=== PATIENT | male | born 1980 | race Caucasian/White ===

== ENCOUNTER 2018-10-18 09:50 | Emergency (ER) | payer OTHER ==
[2018-10-18 09:56] VITALS: BP 122/55; PULSE 99; TEMP 98.4; BMI 31.8
[2018-10-18] MEDS ORDERED: FLUORESCEIN NA 1 EA STRIP OD ONE (10:15)
[2018-10-18] MEDS ORDERED: FLUORESCEIN NA 1 EA STRIP ONE (10:18)
--- NOTE | 2018-10-18 10:34 | PDOC ---
History of Present Illness - General Chief Complaint: Eye Problem Stated Complaint: EYE PAIN/REDNESS Time Seen by Provider: 10/18/18 09:57 History Source: Patient Exam Limitations: No Limitations - History of Present Illness Initial Comments: 10/18/18 10:44 37 year old male with no medical or surgical history presents with pain and irritation to right eye. Patient states while working 2 days ago a piece of metal fell into his right eye. Now with blurred vision, pain and redness. Timing/Duration: other (2 days ago) Severity: moderate Modifying Factors: improves with: immobilization Associated Symptoms: reports: other (blurred vision) Aspirin Received prior to arrival: Yes: no aspirin today Asa Contraindications(Core Measure): No: Allergy Beta Neil Contraindications(Core Measure): No: Not Prescribed Past History - Travel Traveled outside of the country in the last 30 days: No - Past Medical History Allergies/Adverse Reactions: Allergies Allergy/AdvReac Type Severity Reaction Status Date / Time No Known Allergies Allergy Unverified 10/18/18 09:56 Home Medications: Ambulatory Orders Polymyxin B Sulfate/Tmp [Polytrim Opthalmic Solution -] 1 drop OP Q3H #30 drops 10/18/18 COPD: No Other medical history: denies - Suicide/Smoking/Psychosocial Hx Smoking History: Never smoked Information on smoking cessation initiated: No Hx Alcohol Use: No Drug/Substance Use Hx: No Substance Use Type: None Review of Systems - Review of Systems Able to Perform ROS?: Yes Is the patient limited Polish proficient: Yes Constitutional: No: Chills, Fever, Weakness HEENTM: Yes: Eye Pain, Tearing, Recent change in vision. No: Ear Discharge, Nose Pain, Nose Congestion, Throat Swelling, Mouth Pain, Mouth Swelling Respiratory: No: Cough, Orthopnea, Wheezing ABD/GI: No: Abdominal Distended, Nausea, Vomiting, Indigestion Integumentary: No: Bruising, Erythema, Flushing *Physical Exam - Vital Signs Last Vital Signs Temp Pulse Resp BP Pulse Ox 98.4 F 99 H 17 122/55 L 99 10/18/18 09:53 10/18/18 09:53 10/18/18 09:53 10/18/18 09:53 10/18/18 09:53 - Physical Exam General Appearance: Yes: Nourished, Appropriately Dressed. 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 Martino who suggested Rx: polytrim and follow up in the office Patient prescribed polytrim and given office number to call office for appointment to remove foreign body from eye. ( information given to patient in Uzbek) Rx; polytrim q6h and d/c home telephone # of patient is [phone] *DC/Admit/Observation/Transfer Diagnosis at time of Disposition: FB entering eye Corneal abrasion, right Qualifiers: Encounter type: initial encounter Qualified Code(s): S05.01XA - Injury of conjunctiva and corneal abrasion without foreign body, right eye, initial encounter - Discharge Dispostion Disposition: HOME Condition at time of disposition: Good Decision to Admit order: No - Prescriptions Prescriptions: Polymyxin B Sulfate/Tmp [Polytrim Opthalmic Solution -] 1 drop OP Q3H #30 drops - Referrals - Patient Instructions Printed Discharge Instructions: DI for Corneal Abrasion, DI for Foreign Body in the Eye Additional Instructions: Es mas importante to ramy un doctor de julia pronto llama [phone] para beatriz miguel pronto en 3 fields Si tu tienes un doctor de julia [place]. Se llueve aqui si tu sientes mas dolor Print Language: ICELANDIC - Post Discharge Activity Forms/Work/School Notes: Back to Work
== END 2018-10-18 11:43 | disposition home or self-care (01) ==
LOC: JERFT 09:50
DX: T15.11XA Foreign body in conjunctival sac, right eye, initial encounter (principal); S05.01XA Injury of conjunctiva and corneal abrasion without foreign body, right eye, initial encounter; X58.XXXA Exposure to other specified factors, initial encounter; Y93.H3 Activity, building and construction; Y92.69 Other specified industrial and construction area as the place of occurrence of the external cause; Y99.0 Civilian activity done for income or pay
CPT/HCPCS: 99281-25